=== PATIENT | female | born 1975 | race Caucasian/White ===

== ENCOUNTER 2018-05-02 02:15 | Emergency (ER) | payer MEDICAID, OTHER ==
[2018-05-02] MEDS: SOD CHLORIDE 0.9% 1,000 ML IV (03:01)
[2018-05-02 03:16] LABS: URINE PH (Dip) POC 5.5 (5.0-8.5)
[2018-05-02 03:16] LABS: ADD MAN DIFF? NO; URINE BLOOD (Dip) POC Negative (NEGATIVE); URINE GLUCOSE (Dip) POC Negative (NEGATIVE); URINE KETONES (Dip) POC Negative (NEGATIVE); URINE LEUKOCYTE EST (Dip) POC Negative (NEGATIVE); URINE NITRITE (Dip) POC Negative (NEGATIVE); URINE TOTAL PROTEIN POC Trace (NEGATIVE)
[2018-05-02 03:17] LABS: WHITE BLOOD COUNT 12.1 10^3/ul (4.8-10.8)
[2018-05-02 03:17] LABS: BASOPHILS % 0.3 % (0.0-2.0); EOSINOPHILS # 0.1 10^3/ul (0.0-0.5); EOSINOPHILS % 0.9 % (0.0-7.0); HEMATOCRIT 36.3 % (37.0-47.0); HEMOGLOBIN 11.6 g/dl (12.0-16.0); IMMATURE GRANS #M 0.05 10^3/ul; IMMATURE GRANS % (M) 0.4 %; LYMPHOCYTES # 2.4 10^3/ul (0.8-2.9); LYMPHOCYTES % 19.6 % (15.0-51.0); MEAN CORPUSCULAR VOLUME 87.5 fl (82.0-101.0); MEAN PLATELET VOLUME 10.5 fl (7.4-10.4); MONOCYTE # 0.8 10^3/ul (0.3-0.9); MONOCYTES % 6.8 % (0.0-11.0); NEUTROPHIL # 8.7 10^3/ul (1.6-7.5); PLATELET COUNT 235 10^3/UL (140-415); RED BLOOD COUNT 4.15 10^6/ul (4.20-5.40); RED CELL DISTRIBUTION WIDTH 13.8 % (11.5-14.5)
[2018-05-02 03:41] LABS: ANION GAP 10 (8-16); BLOOD UREA NITROGEN 17 mg/dl (7-20); CALCIUM 9.2 mg/dl (8.4-10.2); CARBON DIOXIDE 26 mmol/L (21-31); CHLORIDE 108 mmol/L (97-110); CREATININE 0.68 mg/dl (0.44-1.00); GLUCOSE 135 mg/dl (70-220); POTASSIUM 3.4 mmol/L (3.5-5.1); SODIUM 141 mmol/L (135-144)
[2018-05-02 03:51] LABS: INR 0.95; PROTIME 12.8 Sec (11.9-14.9)
[2018-05-02 03:52] LABS: PARTIAL THROMBOPLASTIN TIME 25.2 Sec (25.0-35.0); TROPONIN-I < 0.010 ng/ml (0.000-0.120)
[2018-05-02] MEDS: POTASSIUM CHLORIDE (SR) 20 MEQ TAB PO ×2 (04:52→06:25)
[2018-05-02] MEDS: morphine 2 MG INJ IV (04:52)
[2018-05-02] MEDS: ONDANSETRON 4 MG INJ IV (04:52)
[2018-05-02] MEDS ORDERED: NACL 0.9% 3 ML SYG IV (05:30)
[2018-05-02] MEDS ORDERED: BISACODYL (EC) 5 MG TAB PO (05:30)
[2018-05-02] MEDS ORDERED: DOCUSATE SODIUM 100 MG CAP PO (05:30)
[2018-05-02 06:07] LABS: MAGNESIUM 1.8 mg/dl (1.7-2.5)
[2018-05-02 06:07] LABS: CHOL/HDL RATIO 3.2 RATIO; CHOLESTEROL 139 mg/dl (100-200); HDL CHOLESTEROL 43 mg/dl (34-88); LDL CHOLESTEROL,CALCULATED 86 mg/dl; TRIGLYCERIDES 48 mg/dl (0-149)
[2018-05-02 06:12] LABS: HEMOGLOBIN A1C 5.5 % (0-5.9)
[2018-05-02] MEDS: KETOROLAC 30 MG INJ IV (06:25)
[2018-05-02 06:28] LABS: IRON 73 ug/dl (35-150)
[2018-05-02 06:38] LABS: % IRON SATURATION 20 % SAT (22-52); TOTAL IRON BINDING CAPACITY 363 ug/dl (241-421)
[2018-05-02 07:02] LABS: THYROID STIMULATING HORMONE 0.795 MIU/L (0.465-4.680)
[2018-05-02] MEDS: AMOXICILLIN 500 MG CAP PO ×3 (09:55→21:43)
[2018-05-02] MEDS: ACETAMINOPHEN 325 MG TAB PO ×2 (14:59→21:50)
[2018-05-03] MEDS: AMOXICILLIN 500 MG CAP PO ×3 (05:43→21:19)
[2018-05-03 05:48] LABS: ADD MAN DIFF? NO
[2018-05-03 05:51] LABS: WHITE BLOOD COUNT 5.9 10^3/ul (4.8-10.8)
[2018-05-03 05:51] LABS: BASOPHILS % 0.5 % (0.0-2.0); EOSINOPHILS # 0.1 10^3/ul (0.0-0.5); EOSINOPHILS % 1.2 % (0.0-7.0); HEMATOCRIT 33.2 % (37.0-47.0); HEMOGLOBIN 10.6 g/dl (12.0-16.0); IMMATURE GRANS #M 0.01 10^3/ul; IMMATURE GRANS % (M) 0.2 %; LYMPHOCYTES # 1.5 10^3/ul (0.8-2.9); LYMPHOCYTES % 25.3 % (15.0-51.0); MEAN CORPUSCULAR HEMOGLOBIN 27.7 pg (29.0-33.0); MEAN CORPUSCULAR HGB CONC 31.9 g/dl (32.0-37.0); MEAN CORPUSCULAR VOLUME 86.7 fl (82.0-101.0); MEAN PLATELET VOLUME 10.7 fl (7.4-10.4); MONOCYTE # 0.5 10^3/ul (0.3-0.9); MONOCYTES % 8.8 % (0.0-11.0); NEUTROPHIL # 3.8 10^3/ul (1.6-7.5); PLATELET COUNT 205 10^3/UL (140-415); RED BLOOD COUNT 3.83 10^6/ul (4.20-5.40)
[2018-05-03 06:11] LABS: ALANINE AMINOTRANSFERASE 15 IU/L (13-69); ALBUMIN 3.6 g/dl (3.3-4.9); ALBUMIN/GLOBULIN RATIO 1.28; ALKALINE PHOSPHATASE 57 IU/L (42-121); ANION GAP 12 (8-16); ASPARTATE AMINO TRANSFERASE 19 IU/L (15-46); BILIRUBIN,INDIRECT 0.3 mg/dl (0-1.1); BILIRUBIN,TOTAL 0.3 mg/dl (0.2-1.3); BLOOD UREA NITROGEN 14 mg/dl (7-20); CALCIUM 8.8 mg/dl (8.4-10.2); CARBON DIOXIDE 25 mmol/L (21-31); CHLORIDE 110 mmol/L (97-110); CREATININE 0.58 mg/dl (0.44-1.00); GLUCOSE 88 mg/dl (70-220); POTASSIUM 3.6 mmol/L (3.5-5.1); SODIUM 143 mmol/L (135-144); TOTAL PROTEIN 6.4 g/dl (6.1-8.1)
[2018-05-03] MEDS: ACETAMINOPHEN 325 MG TAB PO ×2 (07:53→17:35)
[2018-05-04] MEDS: ACETAMINOPHEN 325 MG TAB PO (01:44)
[2018-05-04] MEDS: AMOXICILLIN 500 MG CAP PO ×2 (05:35→14:46)
== END 2018-05-04 16:12 | disposition home or self-care (01) ==
LOC: E/R 02:15 → 6WM 04:33
DX: R55 Syncope and collapse (principal); E86.0 Dehydration; E87.6 Hypokalemia; K08.89 Other specified disorders of teeth and supporting structures; Z98.890 Other specified postprocedural states; S09.8XXA Other specified injuries of head, initial encounter; W19.XXXA Unspecified fall, initial encounter; Y92.002 Bathroom of unspecified non-institutional (private) residence as the place of occurrence of the external cause
CPT/HCPCS: 36415; 70450; 71045; 80048; 80053; 80061; 81003; 81025; 83036; 83540; 83735; 84443; 84484; 85025; 85610; 85730; 93005; 93306; 97110; 97116; 97161; 99217; 99285-25; G0378